=== PATIENT | female | born 1970 | race Caucasian/White ===

== ENCOUNTER 2018-01-13 14:09 | Emergency (ER) | payer BC, SELFPAY ==
[2018-01-13 14:48] VITALS: BP 134/76; PULSE 82; RESP 18; TEMP 36.8; O2SAT 99; BMI 23.1
--- NOTE | 2018-01-13 15:00 | HMH.EDGENADL ---
ED Disposition Clinical Impression: Hypokalemia, Neutropenia Disposition: Home, Self-Care Condition on Discharge: Good Instructions: DI for Diarrhea and Traveler's Diarrhea -- Adult, DI for Diarrhea and Traveler's Diarrhea -- Child, DI for Nausea -- Adult, DI for Nausea -- Child Additional Instructions: Patient will use Gatorade or Powerade. No more plain water. Up with Dr. Bustillos in 3 days for potassium recheck. Return if needed. Prescriptions: Potassium Bicarbonate/Cit AC [Potassium 25 Meq Tablet Eff] 25 meq PO DAILY #2 tablet.eff Referrals: Heriberto Bustillos MD [Primary Care Provider] - - Critical Care Critical Care Time: No Attestation: On 01/13/18, the high probability of a clinically significant, sudden or life threatening deterioration of the following system(s) required my full and direct attention, intervention and personal management. The time I documented below is in addition to time spent performing reported procedures but includes the following listed in this critical care notation. Medical Decision Making Vital Signs: 01/13/18 14:48 Temperature 98.3 F Temperature Source Oral Pulse Rate [Right Brachial] 82 Respiratory Rate 18 Blood Pressure [RIGHT] 134/76 Blood Pressure Mean [RIGHT] 95 Blood Pressure Source [RIGHT] Automatic Cuff Blood Pressure Position [RIGHT] Sitting 02 Sat by Pulse Oximetry 99 Oxygen Delivery Method Room Air - Lab Data Lab Results 01/13/18 14:45: WBC 2.4 L, RBC 5.08, Hgb 12.7, Hct 40.2, MCV 79.0 L, MCH 24.9 L, MCHC 31.6 L, RDW 14.4, Plt Count 96 L, MPV 9.1, Neut % (Auto) 39.7, Lymph % (Auto) 52.4 H, [place] % (Auto) 6.3, Eos % (Auto) 0.8, Baso % (Auto) 0.7, Neut # (Auto) 0.9 L*, Lymph # (Auto) 1.1, [place] # (Auto) 0.2, Eos # (Auto) 0.0, Baso # (Auto) 0.0 01/13/18 14:45: Sodium 138, Potassium 3.4 L, Chloride 100, Carbon Dioxide 28, Anion Gap 13.4, BUN 12, Creatinine 0.74, Estimated Creat Clear 90, Estimated GFR 84, Est GFR ( Amer) 101, Glucose 105, Calcium 8.7, Magnesium 1.7, Total Bilirubin 0.2, AST 57 H, ALT 58, Alkaline Phosphatase 59, Total Protein 7.9, Albumin 3.8, Globulin 4.1 H, Albumin/Globulin Ratio 0.9 L Result diagrams: 01/13/18 14:45 01/13/18 14:45 Orders (Tests/Meds): ED MEDICATIONS Discontinued Medications Generic Name Dose Route Start Last Admin Trade Name Valentine PRN Reason Stop Dose Admin Potassium Chloride 40 meq 01/13/18 15:50 Klor-Con 20meq Tablet PO 01/13/18 15:51 ONCE ONE ORDERS Category Date Time Status Complete Blood Count Auto Diff Stat Lab 01/13/18 14:45 Results - Enrique Inquiry Pt receiving controlled substance: No Enrique was queried for this patient: No Medical Decision Making Narrative: Discussed with the patient her low potassium level and advised her for using Gatorade or Powerade instead of plain water. He verbalized understanding. Received potassium supplement for the next 3 days. Follow-up with Dr. Bustillos for recheck in 3 days. General Adult HPI - General Chief complaint: Nausea/Vomiting/Diarrhea Stated complaint: diag flu 01/10 today: hands drawing up arms moving Mode of Arrival: Family Vehicle Limitations: No Limitations Description of Symptoms (Recalled from ER Triage Doc. by RN): N/V AFTER HAVING FLU. PROBABLY DEHYDRATED - History of Present Illness HPI narrative: 47 years old white female with history of palpitations and anxiety who was diagnosed with the flu a week ago. Had decreased appetite and she is drinking water only. He developed muscle cramp. She has no other symptoms. Onset (ago): day(s) (2 Days.) Radiation: non-radiation Consistency: intermittent Relieving factors: none Exacerbating factors: none Associated symptoms: denies other symptoms Treatments prior to arrival: none - Related Data Previous Rx's Medication Instructions Recorded Potassium Bicarbonate/Cit AC 25 meq PO DAILY #2 tablet.eff 01/13/18 [Potassium 25 Meq Tablet Eff
[2018-01-13 15:29] LABS: Hematocrit 40.2 % (37.0-47.0); Hemoglobin 12.7 g/dL (12.2-16.2); Mean Corpuscular HGB Conc 31.6 g/dL (31.8-35.4); Mean Corpuscular Hemoglobin 24.9 pg (27.0-31.2); Red Blood Count 5.08 M/mm3 (4.20-5.40); White Blood Count 2.4 K/mm3 (4.8-10.8)
[2018-01-13 15:30] LABS: Basophils % 0.7 % (0.1-2.0); Eosinophils % 0.8 % (0.1-12.0); Lymphocytes # 1.1 K/mm3 (0.7-4.5); Lymphocytes % 52.4 K/mm3 (10-50); Mean Platelet Volume 9.1 fl (7.4-10.4); Monocytes # 0.2 K/mm3 (0.1-1.0); Monocytes % 6.3 % (1.7-9.3); Neutrophils # 0.9 K/mm3 (1.8-7.8); Neutrophils % 39.7 % (37.0-80.0); Platelet Count 96 K/mm3 (142-424); Red Cell Distribution Width 14.4 % (11.5-17.5)
[2018-01-13 15:32] LABS: MANUAL DIFFERENTIAL MANUAL DIFFERENTIAL (MANUAL DIFF)
[2018-01-13 15:35] LABS: Alanine Aminotransferase 58 U/L (12-78); Albumin Level 3.8 gm/dL (3.4-5.0); Albumin/Globulin Ratio 0.9 (1.1-1.8); Alkaline Phosphatase 59 U/L (46-116); Anion Gap 13.4 mEq/L (5-15); Aspartate Amino Transferase 57 U/L (15-37); Bilirubin,Total 0.2 mg/dL (0.2-1.0); Blood Urea Nitrogen 12 mg/dL (7-18); Calcium 8.7 mg/dL (8.5-10.1); Carbon Dioxide 28 mmol/L (21.0-32.0); Chloride 100 mmol/L (98-107); Creatinine Clearance Estimated 90 mL/min (0-300); Creatinine,Serum 0.74 mg/dL (0.55-1.02); Estimated Glomerular Filt Rate 84 ml/min (>60); GFR (African American) 101 ML/MIN (>60); Globulin 4.1 gm/dl (1.3-3.2); Glucose 105 mg/dL (74-106); Magnesium 1.7 mg/dL (1.4-2.2); Potassium 3.4 mmoL/L (3.5-5.1); Sodium 138 mmol/L (136-145); Total Protein,Serum 7.9 gm/dL (6.4-8.2)
[2018-01-13 16:22] VITALS: BP 134/75; PULSE 88; RESP 18; TEMP 36.7
[2018-01-13 16:34] LABS: Lymphocytes % 58 % (10-50); Monocytes % 4 % (2-9); Neutrophils % 38 % (42-76); Total Cells Counted 100
[2018-01-13 16:36] LABS: Hypochromasia 2+; Platelet Estimate Moderate D
== END 2018-01-13 16:22 | disposition home or self-care (01) ==
PROVIDERS: Emergency Provider Emergency Medicine; Family Provider Family Medicine; PCP Family Medicine
DX: E87.6 Hypokalemia (principal); D70.9 Neutropenia, unspecified
CPT/HCPCS: 80053; 83735; 85007; 85025; 99282

== ENCOUNTER → 2019-09-22 08:15 | Outpatient (CLI) | payer BC, SELFPAY ==
[2019-09-22 08:48] LABS: Basophils # 0.1 K/mm3 (0-0.2); Basophils % 1.3 % (0.1-2.0); Eosinophils # 0.4 K/mm3 (0.0-0.4); Eosinophils % 8.5 % (0.1-12.0); Hematocrit 41.1 % (37.0-47.0); Hemoglobin 12.5 g/dL (12.2-16.2); Lymphocytes # 1.6 K/mm3 (0.7-4.5); Lymphocytes % 36.8 % (10-50); Mean Corpuscular HGB Conc 30.3 g/dL (31.8-35.4); Mean Corpuscular Hemoglobin 26.4 pg (27.0-31.2); Mean Platelet Volume 8.2 fl (7.4-10.4); Monocytes # 0.2 K/mm3 (0.1-1.0); Monocytes % 5.4 % (1.7-9.3); Neutrophils # 2.1 K/mm3 (1.8-7.8); Platelet Count 202 K/mm3 (142-424); Red Blood Count 4.73 M/mm3 (4.20-5.40); Red Cell Distribution Width 13.9 % (11.5-17.5); White Blood Count 4.3 K/mm3 (4.8-10.8)
[2019-09-22 10:12] LABS: Alanine Aminotransferase 32 U/L (12-78); Albumin Level 3.8 gm/dL (3.4-5.0); Albumin/Globulin Ratio 1.1 (1.1-1.8); Alkaline Phosphatase 53 U/L (46-116); Anion Gap 10.6 mEq/L (5-15); Aspartate Amino Transferase 34 U/L (15-37); Bilirubin,Total 0.2 mg/dL (0.2-1.0); Blood Urea Nitrogen 16 mg/dL (7-18); Calcium 8.9 mg/dL (8.5-10.1); Carbon Dioxide 30 mmol/L (21.0-32.0); Chloride 106 mmol/L (98-107); Chol/HDL Ratio 2.3 (1-3.5); Cholesterol 184 mg/dL (140-200); Creatinine,Serum 0.67 mg/dL (0.55-1.02); Estimated Glomerular Filt Rate 93 ml/min (>60); GFR (African American) 113 ML/MIN (>60); Globulin 3.5 gm/dl (1.3-3.2); Glucose 107 mg/dL (74-106); HDL Cholesterol 79 mg/dL (29-89); LDL Cholesterol 92 mg/dL (0-130); Lipase 156 u/L (73-393); Potassium 4.6 mmoL/L (3.5-5.1); Sodium 142 mmol/L (136-145); T4 (Thyroxine) 7.6 ug/dl (4.7-13.3); Thyroid Stimulating Hormone 2.21 uIU/ml (0.358-3.740); Total Protein,Serum 7.3 gm/dL (6.4-8.2); Triglycerides 63 mg/dL (30-200); VLDL Cholesterol 13 mg/dL (0-40)
[2019-09-23 18:53] LABS: Deamidated Gliadin Abs, IgA 4 units (0-19); Deamidated Gliadin Abs, IgG 3 units (0-19); Tissue Transglutaminase IgA Ab <2 U/mL (0-3); Tissue Transglutaminase IgG Ab <2 U/mL (0-5)
[2019-09-26 12:54] LABS: Endomysial IgA Antibody Negative (Negative)
[2019-09-27 07:23] LABS: Reticulin IgA Antibody Negative titer (Neg:<1:2.5)
== END ==
PROVIDERS: Visit Provider Family Medicine
DX: E04.9 Nontoxic goiter, unspecified (principal); K92.9 Disease of digestive system, unspecified
CPT/HCPCS: 36415; 80053; 80061; 83516; 83690; 84436; 84443; 85025; 86255; 86256

== ENCOUNTER → 2020-02-23 14:13 | Outpatient (CLI) | payer BC, SELFPAY ==
--- NOTE | 2020-02-23 14:17 | XR_ITS ---
PROCEDURE: XR SHOULDER RT MIN 2V CLINICAL INDICATION: RT SHOULDER PAIN Right shoulder pain COMPARISON: No exams were available for comparison FINDINGS: No fracture, dislocation, lytic change, or blastic change evident. No significant degenerative change IMPRESSION: No acute findings. Dictated by: Taz Lugo MD 02/23/2020 15:44 Electronically signed by Taz Lugo MD in [place] 02/23/2020 15:44
== END ==
PROVIDERS: PCP Family Medicine; Visit Provider Family Medicine
DX: M25.511 Pain in right shoulder (principal)
CPT/HCPCS: 73030

== ENCOUNTER 2020-03-08 14:00 | Outpatient (RCR) | payer BC, SELFPAY ==
--- NOTE | 2020-02-28 15:03 | HMH.OTOPEV ---
OT Inpatient Evaluation Rehab OT Outpatient Eval Start: 02/28/20 14:40 Freq: Status: Active Protocol: Document 02/28/20 14:40 [facility] (Rec: 02/28/20 15:03 [facility] [id number]) Electronically Signed By Blaise Andrade OT 02/28/20 14:40 Outpatient Therapy Subjective History Subjective History Pt is a 50 year old female who reports to therapy for initial evaluation to right shoulder. Pt claims she began having pain in right shoulder ~1 year ago. She does not recall a specific injury causing pain in the shoulder. Pt informed therapist that within the past three weeks her pain and stiffiness has become increasingly worse. Pt does demonstrate with significant decline in both AROM and strength at right shoulder. Pt scored an 85 on the Quickdash displays significant decrease in functional ability of the RUE. Chief Complaint Pain,Stiff,Weakness Symptom Type Ache,Throb,Sharp,Dull,Numbness ,Tingling Symptoms Relieved By Rest/Positioning Symptoms Aggravated By Physical Activity,Lifting Prior Functional Limitations None Current Functional Limitations Reaching,Lifting,Housework, Dressing,Desk Work/Reading, Driving,Sleeping,Recreation Activity,Bending/Stooping Symptom Description Constant but Variable Level of pain today (0-10) 4 Pain scale - at its best (0-10) 3 Pain scale - at its worst (0-10) 10 Shoulder/Elbow Eval Shoulder Objective Measurements Shoulder ROM Right Shoulder ROM Limitations Muscle Weakness,Pain Shoulder Abduction Active Range of 75 degrees Motion (degrees) Shoulder Flexion Active Range of Motion 105 degrees (degrees) Query Text: Shoulder External Rotation Active Range 30 degrees of Motion (degrees) Shoulder Internal Rotation Active Range 20 degrees of Motion (degrees) pain with active ROM shoulder exam right standard pain with passive ROM shoulder exam right standard decreased ROM shoulder exam standard right Shoulder MMT Shoulder Abduction Strength Grade 3 Fair Shoulder Extension Strength Grade 3 Fair Shoulder Fle
== END 2020-03-08 14:05 | disposition home or self-care (01) ==
LOC: OT 14:00
PROVIDERS: Visit Provider Family Medicine
DX: M25.511 Pain in right shoulder (principal)
CPT/HCPCS: 97014; 97110; 97140; 97166; G0283

== ENCOUNTER → 2020-05-06 10:08 | Outpatient (CLI) | payer BC, SELFPAY ==
--- NOTE | 2020-05-06 10:19 | XR_ITS ---
PROCEDURE: XR SHOULDER RT MIN 2V CLINICAL INDICATION: right shoulder pain Right shoulder pain COMPARISON: XR SHOULDER RT MIN 2V from 02/23/2020 FINDINGS: No fracture, dislocation, lytic change, or blastic change evident. No significant degenerative change IMPRESSION: Negative right shoulder Dictated by: Taz Lugo MD 05/06/2020 13:53 Electronically signed by Taz Lugo MD in [place] 05/06/2020 13:53
== END ==
PROVIDERS: PCP Family Medicine; Visit Provider Orthopaedic Surgery
DX: M25.511 Pain in right shoulder (principal)
CPT/HCPCS: 73030

== ENCOUNTER 2020-10-22 09:55 | Emergency (ER) | payer BC, SELFPAY ==
[2020-10-22] VITALS (9 sets, daily range): BP systolic 114–138; BP diastolic 66–95; PULSE 68–116; RESP 19; TEMP 36.6; O2SAT 96–99; BMI 22.4
--- NOTE | 2020-10-22 09:55 | ECG_ITS ---
APPROVED REPORT Exam: Resting ECG HR:96 bpm ECG Measurements Heart Rate 96 AXES AZ 148 P 66 QRSd 60 QRS 62 QT 338 T 43 QTc 427 Conclusion Normal sinus rhythm Biatrial enlargement Septal infarct, age undetermined Abnormal ECG Electronically signed by : Dru Rodriguez, 10/22/2020 19:48:10
--- NOTE | 2020-10-22 10:02 | XR_ITS ---
PROCEDURE: XR CHEST 2V CLINICAL HISTORY: palpitations Rapid heart rate, chest pain COMPARISON: No exams were available for comparison FINDINGS: The cardiomediastinal silhouette and pulmonary vascularity are within normal limits. The lungs are clear without infiltrates, suspicious nodules, or pleural effusions. No acute bony abnormalities. IMPRESSION: No acute findings. Dictated by: Taz Lugo MD 10/22/2020 14:32 Taz Lugo MD in [place] 10/22/2020 14:32
--- NOTE | 2020-10-22 10:03 | HMH.EDCP ---
ED Disposition Clinical Impression: Palpitations, Tachycardia Disposition: Home, Self-Care Condition on Discharge: Good Instructions: DI for Palpitations Additional Instructions: You have been evaluated for tachycardia, palpitations. Please follow-up with cardiology, Dr. Ross tomorrow in clinic as planned. Take metoprolol as prescribed. Return to the emergency department if you have any new or worsening chest pain, palpitations, other concerns. Referrals: PCP,No [Non-Staff] - Time of Disposition: 13:19 - Critical Care Critical Care Time: No Attestation: On 10/22/20, the high probability of a clinically significant, sudden or life threatening deterioration of the following system(s) required my full and direct attention, intervention and personal management. The time I documented below is in addition to time spent performing reported procedures but includes the following listed in this critical care notation. Medical Decision Making - Medical Records Medical records reviewed: Yes: I reviewed the patient's medical records. - Enrique Inquiry Pt receiving controlled substance: No Vital Signs: 10/22/20 09:56 10/22/20 10:26 10/22/20 11:10 Temperature 97.8 F Temperature Source Oral Pulse Rate Pulse Rate [Left Radial] 101 H 87 72 Respiratory Rate 19 Blood Pressure Blood Pressure [Right Arm] 138/93 H 124/66 121/90 Blood Pressure Mean [Right Arm] 108 85 100 Blood Pressure Source Blood Pressure Source [Right Arm] Automatic Cuff Automatic Cuff Automatic Cuff Blood Pressure Position Blood Pressure Position [Right Arm] Sitting Sitting Sitting 02 Sat by Pulse Oximetry 98 99 97 Oxygen Delivery Method Room Air Room Air Room Air 10/22/20 11:47 10/22/20 12:00 10/22/20 12:36 Temperature Temperature Source Pulse Rate Pulse Rate [Left Radial] 77 68 72 Respiratory Rate Blood Pressure Blood Pressure [Right Arm] 120/95 H 132/94 H 120/82 Blood Pressure Mean [Right Arm] 103 106 94 Blood Pressure Source Blood Pressure Source [Right Arm] Automatic Cuff Automatic Cuff Automatic Cuff Blood Pressure Position Blood Pressure Position [Right Arm] Sitting Sitting Sitting 02 Sat by Pulse Oximetry 98 99 97 Oxygen Delivery Method Room Air Room Air Room Air 10/22/20 13:00 10/22/20 13:30 10/22/20 13:51 Temperature 97.8 F Temperature Source Oral Pulse Rate 68 Pulse Rate [Left Radial] 71 68 Respiratory Rate 19 Blood Pressure 114/88 Blood Pressure [Right Arm] 120/90 114/88 Blood Pressure Mean [Right Arm] 100 96 Blood Pressure Source Automatic Cuff Blood Pressure Source [Right Arm] Automatic Cuff Automatic Cuff Blood Pressure Position Sitting Blood Pressure Position [Right Arm] Sitting Sitting 02 Sat by Pulse Oximetry 96 99 Oxygen Delivery Method Room Air Room Air Room Air - Lab Data Lab Results 10/22/20 09:58: WBC 6.4, RBC 5.34, Hgb 14.9, Hct 48.4 H, MCV 90.6, MCH 27.9, MCHC 30.8 L, RDW 12.8, Plt Count 208, MPV 7.5, Neut % (Auto) 55.7, Lymph % (Auto) 33.9, [place] % (Auto) 4.9, Eos % (Auto) 4.2, Baso % (Auto) 1.3, Neut # (Auto) 3.6, Lymph # (Auto) 2.2, [place] # (Auto) 0.3, Eos # (Auto) 0.3, Baso # (Auto) 0.1 10/22/20 09:58: Sodium 140, Potassium 4.1, Chloride 101, Carbon Dioxide 29, Anion Gap 14.1, BUN 20 H, Creatinine 0.70, Estimated Creat Clear 92, Estimated GFR 88, Est GFR ( Amer) 107, Glucose 97, Calcium 10.6 H, Troponin I < 0.01, TSH 2.50 10/22/20 09:58: Free T4 1.06 10/22/20 12:11: Troponin I < 0.01 Result diagrams: 10/22/20 09:58 10/22/20 09:58 Orders (Tests/Meds): ED MEDICATIONS Discontinued Medications Generic Name Dose Route Start Last Admin Trade Name Valentine PRN Reason Stop Dose Admin Metoprolol Succinate 50 mg 10/22/20 10:04 10/22/20 10:09 Metoprolol Succinate Xl 50mg Tablet PO 10/22/20 10:05 Not Given ONCE ONE Metoprolol Tartrate 50 mg 10/22/20 10:09 10/22/20 10:09 Metoprolol Tartrate 50mg Tablet PO 10/22/20 10:10
[2020-10-22 10:18] LABS: Basophils # 0.1 K/mm3 (0-0.2); Basophils % 1.3 % (0.1-2.0); Eosinophils # 0.3 K/mm3 (0.0-0.4); Eosinophils % 4.2 % (0.1-12.0); Hematocrit 48.4 % (37.0-47.0); Hemoglobin 14.9 g/dL (12.2-16.2); Lymphocytes # 2.2 K/mm3 (0.7-4.5); Lymphocytes % 33.9 % (10-50); Mean Corpuscular HGB Conc 30.8 g/dL (31.8-35.4); Mean Corpuscular Hemoglobin 27.9 pg (27.0-31.2); Mean Corpuscular Volume 90.6 fl (81-99); Mean Platelet Volume 7.5 fl (7.4-10.4); Monocytes # 0.3 K/mm3 (0.1-1.0); Monocytes % 4.9 % (1.7-9.3); Neutrophils # 3.6 K/mm3 (1.8-7.8); Neutrophils % 55.7 % (37.0-80.0); Platelet Count 208 K/mm3 (142-424); Red Blood Count 5.34 M/mm3 (4.20-5.40); Red Cell Distribution Width 12.8 % (11.5-17.5); White Blood Count 6.4 K/mm3 (4.8-10.8)
[2020-10-22 10:40] LABS: Chloride 101 mmol/L (98-107); Potassium 4.1 mmoL/L (3.5-5.1); Sodium 140 mmol/L (136-145)
[2020-10-22 10:43] LABS: Anion Gap 14.1 mEq/L (5-15); Blood Urea Nitrogen 20 mg/dl (7-17); Calcium 10.6 mg/dl (8.4-10.2); Carbon Dioxide 29 mmol/L (22.0-30.0); Creatinine Clearance Estimated 92 mL/min (50-200); Estimated Glomerular Filt Rate 88 ml/min (>60); GFR (African American) 107 ML/MIN (>60); Glucose 97 mg/dl (74-100)
[2020-10-22 10:59] LABS: Troponin I < 0.01 ng/ml (0.00-0.034)
[2020-10-22 11:41] LABS: Free T4 (Free Thyroxine) 1.06 ng/dl (0.78-2.19)
[2020-10-22 12:57] LABS: Troponin I < 0.01 ng/ml (0.00-0.034)
== END 2020-10-22 13:52 | disposition home or self-care (01) ==
PROVIDERS: Emergency Provider Emergency Medicine; PCP Family Medicine
DX: R00.2 Palpitations (principal); R07.9 Chest pain, unspecified; Z79.899 Other long term (current) drug therapy
CPT/HCPCS: 71046; 80048; 84439; 84443; 84484; 85025; 93005; 93306; 99283

== ENCOUNTER → 2020-10-28 06:42 | Outpatient (CLI) | payer BC, SELFPAY ==
--- NOTE | 2020-10-28 06:43 | NM_ITS ---
APPROVED REPORT Exam: Nuclear Stress Test Indication: Chest pain, SOB Patient Location: Outpatient Stress Tech: Victoria Zapata [place] Tech:Staci Strange, MALLORYT, RT (R)(N) Ht: 5 ft 4 in Wt: 135 lbs HR: 68 bpm BP: 110/83 mmHg BSA: 1.66 m2 BMI: 23.1 History: Chest pain, SOB Procedure: Patient exercised on Jose Juan protocol 7:40 minutes and sec, resting heart rate 68 bpm, resting blood pressure 110/83 mmHg, with exercise maximum heart rate achived was 186 bpm which is 110 % of the maximum predicted heart rate and blood pressure was 159/82 mmHg. Test was stopped due to SOB. Patient denied any complaint of chest pain. Patient has Good exercise capacity, achieved 10.1 METs of workload on treadmill, the blood pressure response to exercise was Adequate. Electrocardiogram Resting electrocardiogram shows sinus rhythm, with exercise there is less than 1.[address] segment depression noted from the baseline EKG. The EKG portion of the exercise Myoview is negative for ischemia. Cardiac Stress and Resting SPECT Images: Cardiac Stress and Resting SPECT images were obtained using technetium 99m Myoview 30.5 mCi stress and 9.71 mCi at rest. Gated SPECT for analysis of segmental wall motion and calculation of the ejection fraction also done. Cardiac stress and resting SPECT images show uniform myocardial activity without segmental perfusion abnormality, computer derived ejection fraction is 52% with no regional wall motion abnormality, right ventricle is normal size and contractility. Conclusion: 1. The EKG portion of the exercise Myoview is negative for ischemia, patient has good exercise capacity achieved 10.1 mets of workload on treadmill, the blood pressure response to exercise was adequate, there was no exercise-induced chest discomfort. 2. No scintigraphic evidence of reversible ischemia seen at this level of exercise, computer derived ejection fraction is 52% with no regional wall motion abnormality, right ventricle is normal size and contractility. 3. Normal exercise Myoview study. Electronically signed by : Jarocho Haji, 10/30/2020 06:49:38
--- NOTE | 2020-10-28 06:43 | CA_ITS ---
APPROVED REPORT Exam: Exercise Treadmill Technologist: Victoria Zapata Ht: 5 ft 4 in Wt: 132 lbs BSA: 1.64 m2 HR: 68 bpm BP: 110/83 mmHg Indications: Chest pain, Shortness of Air Medical History Medications: Omeprazole,,,,, Alprazolam,,,,, Metoprolol,,,,, Ibuprofen,,,,, Stress Test Details Test: Jose Juan HR Resting HR: 98 bpm Max Heart Rate (APMHR): 169 bpm Max HR Achieved: 186 bpm Target HR (85% APMHR): 143 bpm % of APMHR: 110 Recovery HR: 104 bpm BP Resting BP: 110.0/83.0 mmHg Max BP: 159.0/82.0 mmHg Recovery BP: 141.0/74.0 mmHg ECG Clinical Exercise duration: 07:40 min Highest Stage Achieved: Exercise capacity: 10.1 METs Stress ECG Conclusion Resting EKG: Sinus rhythm Jose Juan protocol completed. Patient exercised 07:40. Test stopped due to shortness of breath. METs: 10.1 Symptoms: Shortness of breath during peak exercise, resolved in recovery. No chest pain. Arrhythmias/Ectopy: Occasional PVC ST-T Changes: Less than 1.[address] depression Conclusion: Images to follow. Test Summary REST . . . . . . . Sitting REST 23:42 0.0 0.0 98 . 110/ 83 . . Stage 1 01:00 10.0 1.7 112 . . . . Stage 1 02:00 10.0 1.7 114 . . . . Stage 1 03:00 10.0 1.7 129 . 130/ 86 . . Stage 2 01:00 12.0 2.5 155 . . . . Stage 2 02:00 12.0 2.5 169 . . . . Stage 2 03:00 12.0 2.5 173 . 158/ 86 . . Stage 3 . . . . . . . Cardiolite injected Stage 3 01:00 14.0 3.4 182 . . . . Stage 3 01:40 14.0 3.4 186 . . . Stop exercise at 07:40 RECOVERY 01:00 0.0 0.0 165 . 148/ 70 . . RECOVERY 02:00 0.0 0.0 123 . 148/ 70 . . RECOVERY 03:00 0.0 0.0 108 . 159/ 82 . . RECOVERY 04:00 0.0 0.0 105 . 141/ 74 . . RECOVERY 04:13 0.0 0.0 102 . 141/ 74 . . Electronically signed by : Faustino Ross, 10/28/2020 15:48:20
--- NOTE | 2020-10-28 08:20 | HMH.ITSHM ---
Current Home Medications as stated by this patient Gabriella Calzada or medical detail representative. []METOPROLOL OMEPRAZOLE ALPROZOLAM
== END ==
PROVIDERS: PCP Family Medicine; Visit Provider Urology
DX: R07.9 Chest pain, unspecified (principal); R00.2 Palpitations; R06.00 Dyspnea, unspecified; R94.31 Abnormal electrocardiogram [ECG] [EKG]; K21.9 Gastro-esophageal reflux disease without esophagitis
CPT/HCPCS: 78452; 93017; A9502

== ENCOUNTER 2020-12-02 13:51 | Emergency (ER) | payer BC, SELFPAY ==
[2020-12-02 14:20] VITALS: BP 119/84; PULSE 70; RESP 20; TEMP 36.8; O2SAT 98; BMI 23.6
--- NOTE | 2020-12-02 14:38 | HMH.EDUTC ---
[facility] [place] Disposition Clinical Impression: Encounter for laboratory testing for COVID-19 virus URI (upper respiratory infection) Qualifiers: URI type: unspecified URI Qualified Code(s): J06.9 - Acute upper respiratory infection, unspecified Disposition: Home, Self-Care Condition on Discharge: Good Instructions: Coronavirus Disease 2019, DI for COVID-19 (Suspected or Confirmed ), Preventing the Spread of Coronavirus Discharge Instructions, DI for Sinusitis Additional Instructions: *Monitor Temp, Over the counter Motrin or Tylenol as directed/as needed Tylenol every 4 hours and Motrin every 6 hours (as long as your family doctor has told you that you can take it) for fever or pain. and straight to ER if unable to lower temp less than 101.0 after medication given *Warm salt water gargles may help to soothe the throat *Throat Lozenges *Warm fluids like tea with honey may help to soothe the throat *Sleep elevated *Humidifier/Vaporizer *Flonase 2 sprays in each nostril daily but be aware that it may take 2-3 days before you notice improvement Follow up IMMEDIATELY for new or worsening symptoms or no Noticeable improvement over the next 48-72 hours. 911 for difficulty breathing or swallowing You were tested for today for COVID19 your test result should be back in the next 24-48 hours, you may call to the [facility] to see if your test results are back in the next 48 hours [phone] [facility] hours are 9am-9pm You was given a handout with instructions for Self Quarantine and Self isolation for while you wait on test results and what to do if they are positive If you are positive the Health Dept will be contacting you also Prescriptions: Fluticasone Propionate [Flonase 50mcg nasal spray 16gm] 1 spr NS DAILY #1 bottle Transmission Status: Pending to [facility] Azithromycin [Z-Bj 250mg Tab] 250 mg PO DIRECTED #6 tab Transmission Status: Pending to [facility] Referrals: Heriberto Bustillos MD [Primary Care Provider] - As needed Forms: Work/School Release Time of Disposition: 14:42 Medical Decision Making - Enrique Inquiry Pt receiving controlled substance: No Enrique was queried for this patient: No Vital Signs: 12/02/20 14:20 Temperature 98.2 F Temperature Source Oral Pulse Rate [Right Brachial] 70 Respiratory Rate 20 Blood Pressure [Right Arm] 119/84 Blood Pressure Mean [Right Arm] 95 Blood Pressure Source [Right Arm] Automatic Cuff Blood Pressure Position [Right Arm] Sitting 02 Sat by Pulse Oximetry 98 Oxygen Delivery Method Room Air Orders (Tests/Meds): ORDERS Category Date Time Status Covid-19 Nasal PCR ([facility]) Routine Lab 12/02/20 14:00 Ordered [facility] [place] HPI - General Stated complaint: covid test Time Seen by Provider: 12/02/20 14:38 Mode of Arrival: Ambulatory Source of Information: Patient Limitations: No Limitations Description of Symptoms (Recalled from Triage Doc. by RN): PATIENT REQUESTING COVID TEST. C/O COUGH, CHEST CONGESTION, AND RIGHT EAR PAIN X 2 DAYS HEENT Symptoms (Recalled from RN notes): No Resp Symptoms (Recalled from RN notes): No Skin Symptoms (Recalled from RN notes): No MS Symptoms (Recalled from RN notes): No Functional Status (Recalled from RN notes): WNL - History of Present Illness Provider Complaint: Patient states that she has been having pain in her right ear, sinus pressure and cough for several days State that she isnt sure if she has been around someone with COVID or not but wanted to get tested States that she has had sinus infections in the past and this feels like it did then - Related Data Home Medications Medication Instructions Recorded Confirmed ibuprofen 200 mg tablet 200 mg PO Q6H PRN 05/06/20 11/04/20 omeprazole 40 mg capsule,delayed 40 mg PO DAILY 05/06/20 11/04/20 release alprazolam 0.5 mg tablet 0.5 mg PO QID PRN tab 10/23/20 11/04/20 metoprolol succinate 50 mg 50 mg PO BID tab 10/23/20 11/04/20 tablet,extend
[2020-12-02 15:06] VITALS: BP 119/84; PULSE 70; RESP 20; TEMP 36.8; O2SAT 98
== END 2020-12-02 15:07 | disposition home or self-care (01) ==
PROVIDERS: Emergency Provider Nurse Practitioner; PCP Family Medicine
DX: Z20.822 Contact with and (suspected) exposure to COVID-19 (principal); J06.9 Acute upper respiratory infection, unspecified; K21.9 Gastro-esophageal reflux disease without esophagitis; R00.2 Palpitations
CPT/HCPCS: 99202; G0463; U0003

== ENCOUNTER 2021-02-18 13:51 | Emergency (ER) | payer BC, SELFPAY ==
[2021-02-18 13:54] VITALS: BP 130/93; PULSE 72; RESP 18; TEMP 36.6; O2SAT 98; BMI 24.0
[2021-02-18 14:12] VITALS: BP 130/93; PULSE 77; RESP 18; O2SAT 96
--- NOTE | 2021-02-18 14:21 | XR_ITS ---
PROCEDURE: XR ANKLE LT MIN 3V CLINICAL INDICATION: fall Posttraumatic pain COMPARISON: CR XR FOOT LT MIN 3V from 02/18/2021 FINDINGS: The ankle has an unremarkable appearance. There is a faint curvilinear density along the lateral aspect of the calcaneus as seen on the AP view of the ankle and the AP view of the foot suggesting a small avulsion fracture. This is not significantly displaced. No other significant anomalies are apparent. IMPRESSION: Nondisplaced avulsion fracture along the lateral and distal aspect of the calcaneus with overlying soft tissue swelling. Dictated by: Taz Lugo MD 02/18/2021 15:50 Taz Lugo MD in [place] 02/18/2021 15:51
--- NOTE | 2021-02-18 14:21 | XR_ITS ---
PROCEDURE: XR KNEE LT 3V CLINICAL INDICATION: fall Pain COMPARISON: No exams were available for comparison FINDINGS: No fracture or dislocation. No lytic or blastic change. There is normal mineralization. The joint spaces are well-preserved. No significant degenerative/arthritic changes. No erosive changes evident. Other findings:None. IMPRESSION: No acute findings. Dictated by: Taz Lugo MD 02/18/2021 15:52 Taz Lugo MD in [place] 02/18/2021 15:52
--- NOTE | 2021-02-18 14:21 | XR_ITS ---
PROCEDURE: XR KNEE RT 3V CLINICAL INDICATION: fall Posttraumatic pain COMPARISON: CR XR KNEE LT 3V from 02/18/2021 FINDINGS: No fracture or dislocation. No lytic or blastic change. There is normal mineralization. The joint spaces are well-preserved. No significant degenerative/arthritic changes. No erosive changes evident. Other findings:None. IMPRESSION: No acute findings. Dictated by: Taz Lugo MD 02/18/2021 15:51 Taz Lugo MD in [place] 02/18/2021 15:51
--- NOTE | 2021-02-18 14:22 | XR_ITS ---
PROCEDURE: XR RIBS LT MIN 3V W CXR1V CLINICAL INDICATION: fall, pain COMPARISON: CR XR CHEST 2V from 10/22/2020 FINDINGS: Multiple views of the left ribs show no obvious fracture. No lytic or blastic change. Consider follow-up in 7-[address] with 3D reformats if pain persists Frontal view of the chest shows no acute finding IMPRESSION: No acute findings. Dictated by: Taz Lugo MD 02/18/2021 15:53 Taz Lugo MD in [place] 02/18/2021 15:53
[2021-02-18 14:30] VITALS: BP 113/86; PULSE 80; RESP 18; O2SAT 98
--- NOTE | 2021-02-18 15:30 | HMH.EDGENADL ---
ED Disposition Clinical Impression: Avulsion fracture of calcaneus Qualifiers: Encounter type: initial encounter Calcaneus location: tuberosity Fracture type: closed Fracture alignment: nondisplaced Laterality: left Qualified Code(s): S92.035A - Nondisplaced avulsion fracture of tuberosity of left calcaneus, initial encounter for closed fracture Contusion of knee, left Qualifiers: Encounter type: initial encounter Qualified Code(s): S80.02XA - Contusion of left knee, initial encounter Contusion of knee, right Qualifiers: Encounter type: initial encounter Qualified Code(s): S80.01XA - Contusion of right knee, initial encounter Contusion of rib on left side Qualifiers: Encounter type: initial encounter Qualified Code(s): S20.212A - Contusion of left front wall of thorax, initial encounter Disposition: Home, Self-Care Condition on Discharge: Good Instructions: How to Use Crutches, DI for Foot Fracture, How to Prevent Falls, How to Take Care of Your Splint Additional Instructions: Ice to sore areas 20 minutes 4-5 times a day. Elevate sore extremities for 2 to 3 days. Splint and crutches until seen by orthopedics. Gladys as needed for pain. Additional instructions for FRACTURED (BROKEN) BONE: See Dr. Alvarado as soon as possible for further evaluation. Treat your splint like you would a cast: Do not get it wet (cover with a plastic bag while bathing or showering). If the splint feels too tight, you may loosen the david wrap covering it, but do not remove the splint. You may ice the fracture by applying an ice pack over the top of the splint, without removing the splint. Return to an emergency department immediately if you have uncontrollable pain, loss of feeling or inability to move your injured extremity. Additional instructions for CONTROLLED SUBSTANCES: You have been prescribed a medication that is a controlled substance. Controlled substances include pain medications known as opiates and sedative nerve medications known as benzodiazepines. Tramadol, fioricet, and gabapentin are also controlled substances. Some common opiates include: Codeine (such as Tylenol #3) Hydrocodone (Vicodin, Lortab, Lorcet, [place]) Oxycodone (Percocet, Percodan, Oxycodone, Oxy IR) Some common benzodiazepines include: Diazepam (Valium) Lorazepam (Ativan) Alprazolam (Xanax) Clonazepam (Klonopin) Oxazepam (Serax) All of these controlled substances are highly addictive and frequently abused. Misuse can and frequently does lead to addiction as well as overdose and . Medication should be stored in a locked cabinet or other secure storage unit. Do not store the medication in a motor vehicle. Short term supplies, 3 days or less, are prescribed because of the highly addictive nature of the medication. Any of the controlled substance medication NOT taken should be disposed of properly and NOT SAVED. The recommended method of disposing of unused medications is: Place the medicines in a sealable plastic bag. If the medicine is a solid, crush it or add water to dissolve it. Add something undesirable (cat litter, coffee grounds, etc.) Dispose of sealed bag in household trash Do not flush or pour unused medicines down a sink or drain. Controlled substances should not be shared, given away or sold. Because of the addictive nature and frequent abuse, these medications are sometimes stolen. These medications should be kept in a safe place where they cannot be stolen. Do not keep them in your car or purse. Lost or stolen prescriptions for controlled substances WILL NOT BE REFILLED in this emergency department, regardless of whether a police report was filed. Prescriptions: Hydrocod/Acet 5/325 mg [[place] 5/325mg tablet] 1 tab PO Q6HP PRN #10 tab PRN Reason: Pain Transmission Status: Sent to [facility] Referrals: Heriberto Bustillos MD [Primary Care Provider] - Thiago Alvarado MD [Staff Physician] -
[2021-02-18 16:27] VITALS: BP 113/86; PULSE 80; RESP 18; TEMP 36.6; O2SAT 98
== END 2021-02-18 16:27 | disposition home or self-care (01) ==
PROVIDERS: Emergency Provider Emergency Medicine; PCP Family Medicine
DX: S92.002A Unspecified fracture of left calcaneus, initial encounter for closed fracture (principal); W10.9XXA Fall (on) (from) unspecified stairs and steps, initial encounter; Y92.019 Unspecified place in single-family (private) house as the place of occurrence of the external cause; S80.02XA Contusion of left knee, initial encounter; S80.01XA Contusion of right knee, initial encounter; S20.212A Contusion of left front wall of thorax, initial encounter; K21.9 Gastro-esophageal reflux disease without esophagitis; R03.0 Elevated blood-pressure reading, without diagnosis of hypertension; Z79.899 Other long term (current) drug therapy
CPT/HCPCS: 29515; 71101; 73562; 73610; 73630; 99282

== ENCOUNTER → 2021-03-07 13:50 | Outpatient (CLI) | payer BC, SELFPAY ==
--- NOTE | 2021-03-07 14:23 | CT_ITS ---
PROCEDURE: CT CHEST WO CON CLINICAL INDICATION: CHEST WALL PAIN Posttraumatic pain COMPARISON: CR XR RIBS LT MIN 3V W CXR1V from 02/18/2021 TECHNIQUE: Axial images obtained with sagittal and coronal reformats. All CT scans at the facility use one or more dose reduction, viz: automated exposure control, ma/kV adjustment per patient size (including targeted exams where dose is matched to indication, i.e. head), or iterative reconstruction technique. FINDINGS: HEART AND MEDIASTINAL STRUCTURES: There are few scattered small mediastinal lymph nodes. No evidence of aortic aneurysm. No mediastinal or hilar mass LUNGS AND PLEURAL SPACES: Minimal atelectatic or fibrotic change in the left lung base. Lungs are otherwise clear. No evidence of pneumothorax BONY STRUCTURES: There is a nondisplaced fracture involving the left 6th rib. There is some faint callus formation at this area. UPPER ABDOMEN: Unremarkable. ADDITIONAL FINDINGS: No other significant abnormalities. IMPRESSION: Nondisplaced left 6th rib fracture Dictated by: Taz Lugo MD 03/07/2021 17:51 Taz Lugo MD in [place] 03/07/2021 17:51
== END ==
LOC: RAD 13:50
PROVIDERS: PCP Family Medicine; Visit Provider Family Medicine
DX: R07.89 Other chest pain (principal)
CPT/HCPCS: 71250

== ENCOUNTER → 2021-03-24 14:50 | Outpatient (CLI) | payer BC, SELFPAY ==
--- NOTE | 2021-03-24 14:55 | XR_ITS ---
PROCEDURE: XR FOOT WT BEARING LT 3V CLINICAL INDICATION: foot pain Follow-up fracture COMPARISON: CR XR FOOT LT MIN 3V from 02/18/2021 FINDINGS: Previously noted avulsion fracture at the calcaneus laterally and distally is not significantly changed. Otherwise unremarkable. The joint spaces are well-preserved. No significant degenerative/arthritic changes. No erosive changes evident. Other findings:None. IMPRESSION: No change small nondisplaced avulsion fracture distal calcaneus laterally Dictated by: Taz Lugo MD 03/24/2021 16:43 Taz Lugo MD in [place] 03/24/2021 16:43
== END ==
LOC: RAD 14:52
PROVIDERS: PCP Family Medicine; Visit Provider Podiatrist
DX: T14.8XXA Other injury of unspecified body region, initial encounter (principal)
CPT/HCPCS: 73630

== ENCOUNTER → 2021-04-23 11:01 | Outpatient (CLI) | payer BC, SELFPAY ==
--- NOTE | 2021-04-23 11:04 | XR_ITS ---
PROCEDURE: XR ANKLE WT BEARING LT MIN 3V CLINICAL INDICATION: Pain, fracture follow up COMPARISON: CR XR ANKLE LT MIN 3V from 02/18/2021 FINDINGS: Bones: No fracture or dislocation. No lytic or blastic change. There is normal mineralization. Joints: The joint spaces are well-preserved. No significant degenerative/arthritic changes. No erosive changes evident. Other findings:Previously noted faint avulsion fracture along the calcaneal region is no longer apparent. IMPRESSION: No acute findings. Dictated by: Taz Lugo MD 04/23/2021 12:04 Taz Lugo MD in [place] 04/23/2021 12:04
--- NOTE | 2021-04-23 11:12 | XR_ITS ---
PROCEDURE: XR FOOT WT BEARING LT 3V CLINICAL INDICATION: foot pain COMPARISON: CR XR FOOT LT MIN 3V from 02/18/2021 CR XR FOOT WT BEARING LT 3V from 03/24/2021 FINDINGS: Small avulsion injury of the calcaneus is less apparent. No new abnormalities evident. The joint spaces are well-preserved. No significant degenerative/arthritic changes. No erosive changes evident. Other findings:There is soft tissue swelling at the 5th metatarsophalangeal junction laterally. IMPRESSION: Possible small avulsion fracture of the calcaneus less apparent. Mild soft tissue swelling 5th metatarsophalangeal junction laterally Dictated by: Taz Lugo MD 04/23/2021 12:03 Taz Lugo MD in [place] 04/23/2021 12:03
== END ==
LOC: RAD 11:02
PROVIDERS: PCP Family Medicine; Visit Provider Podiatrist
DX: M79.672 Pain in left foot (principal); S92.002A Unspecified fracture of left calcaneus, initial encounter for closed fracture
CPT/HCPCS: 73610; 73630

== ENCOUNTER 2021-08-07 10:40 | Emergency (ER) | payer BC, SELFPAY ==
[2021-08-07 11:30] VITALS: BP 140/96; PULSE 102; RESP 18; TEMP 36.7; O2SAT 95; BMI 24.0
--- NOTE | 2021-08-07 12:02 | HMH.EDUTC ---
[facility] [place] Clinical Impression: Exposure to COVID-19 virus Disposition: Home, Self-Care Condition on Discharge: Good Instructions: DI for COVID-19 (Suspected or Confirmed ), Preventing the Spread of Coronavirus Discharge Instructions Additional Instructions: *Monitor Temp, Over the counter Motrin or Tylenol as directed/as needed Tylenol every 4 hours and Motrin every 6 hours (as long as your family doctor has told you that you can take it) for fever or pain. and straight to ER if unable to lower temp less than 101.0 after medication given Follow up IMMEDIATELY for new or worsening symptoms or no Noticeable improvement over the next 48-72 hours. 911 for difficulty breathing or swallowing You were tested for today for COVID19 your test result should be back in the next 24-48 hours, you may call to the [facility] to see if your test results are back in the next 48 hours [phone] [facility] hours are 9am-9pm You was given a handout with instructions for Self Quarantine and Self isolation for while you wait on test results and what to do if they are positive If you are positive the Health Dept will be contacting you also Make sure to take your Vitamins Vit. C Vit D and Zinc if you can take them Referrals: Heriberto Bustillos MD [Primary Care Provider] - As needed Forms: Work/School Release Medical Decision Making - Enrique Inquiry Pt receiving controlled substance: No Enrique was queried for this patient: No Vital Signs: 08/07/21 11:30 Temperature 98.0 F Temperature Source Oral Pulse Rate [Right Brachial] 102 H Respiratory Rate 18 Blood Pressure [Right Arm] 140/96 H Blood Pressure Mean [Right Arm] 110 Blood Pressure Source [Right Arm] Automatic Cuff Blood Pressure Position [Right Arm] Sitting 02 Sat by Pulse Oximetry 95 Oxygen Delivery Method Room Air [facility] [place] HPI - General Stated complaint: covid exposure Time Seen by Provider: 08/07/21 12:02 Mode of Arrival: Ambulatory Source of Information: Patient Limitations: No Limitations Description of Symptoms (Recalled from Triage Doc. by RN): COVID TEST D/T EXPOSURE. DENIES SYMPTOMS HEENT Symptoms (Recalled from RN notes): No Resp Symptoms (Recalled from RN notes): No Skin Symptoms (Recalled from RN notes): No MS Symptoms (Recalled from RN notes): No Functional Status (Recalled from RN notes): WNL - History of Present Illness Provider Complaint: Patient state that tested positive for COVID yesterday but has not been having any symptoms States that she is not having any symptoms but wanted to get tested - Related Data Home Medications Medication Instructions Recorded Confirmed ibuprofen 200 mg tablet 200 mg PO Q6H PRN 05/06/20 05/05/21 omeprazole 40 mg capsule,delayed 40 mg PO DAILY 05/06/20 05/05/21 release alprazolam 0.5 mg tablet 0.5 mg PO QID PRN tab 10/23/20 05/05/21 metoprolol succinate 50 mg 50 mg PO BID tab 10/23/20 05/05/21 tablet,extended release 24 hr Allergies Allergy/AdvReac Type Severity Reaction Status Date / Time No Known Allergies Allergy Verified 05/05/21 13:53 - Worker's Comp Is this a Worker's Comp case?: No H History - Hepatitis A Screen Drug use history?: No High risk sexual behaviors?: No History of sexually transmitted infection?: No Currently employed?: No Childcare worker?: No Do you have indoor plumbing?: Yes Do you have electricity?: Yes Attestation statement:: This patient has been screened for Hepatitis A risk factors. I have reviewed the patient's past medical history: Yes Medical History: Reports:: Gastroesophageal Reflux Disease(GERD), Palpitations Other Surgeries: Yes: Colonoscopy, Comment: b/l hand surgery - Social History Smoking Status: Never smoker Alcohol Intake: current Alcohol Intake Frequency:: 0-2 drinks per day Occupational Status: other Family Hx:: Cancer ROS Obtained: Yes All systems reviewed & no additional complaints, Yes Systems reviewed as appropriate &
[2021-08-07 12:06] VITALS: BP 140/96; PULSE 102; RESP 18; TEMP 36.7; O2SAT 95
== END 2021-08-07 12:14 | disposition home or self-care (01) ==
PROVIDERS: Emergency Provider Nurse Practitioner; PCP Family Medicine
DX: Z20.822 Contact with and (suspected) exposure to COVID-19 (principal)
CPT/HCPCS: 99202; G0463; U0003

== ENCOUNTER → 2022-07-15 10:26 | Outpatient (CLI) | payer BC, SELFPAY ==
--- NOTE | 2022-07-15 10:39 | US_ITS ---
FINAL REPORT CLINICAL HISTORY: pelvic pain FINDINGS: Transvaginal sonographic images of the pelvis were obtained. The uterus is retroverted measuring 4.7 x 3.5 x 4.2 cm. The uterus has a somewhat lobular contour, uterine fibroid is not excluded. The endometrium measures 5 mm which is mildly thickened in the postmenopausal patient, nonspecific. The right ovary measures 2.1 by 1.4 x 1.3 cm. The left ovary measures 1.4 x 1.4 x 0.78 cm. No free fluid is seen in the pelvis. IMPRESSION: Mildly thickened endometrium in a postmenopausal patient which is abnormal but nonspecific. Reviewed, Interpreted and Dictated by Vaibhav White III, MD Transcribed by Kylah Corona Authenticated and [facility]
== END ==
LOC: RAD 10:27
PROVIDERS: PCP Family Medicine; Visit Provider Obstetrics & Gynecology
DX: R10.2 Pelvic and perineal pain (principal)
CPT/HCPCS: 76830

== ENCOUNTER → 2022-07-27 09:52 | Outpatient (CLI) | payer BC, SELFPAY ==
--- NOTE | 2022-07-27 09:52 | CT_ITS ---
FINAL REPORT CLINICAL HISTORY: Left lower pelvic pain FINDINGS: CT OF THE ABDOMEN AND PELVIS WITH CONTRAST Axial CT images of the abdomen and pelvis were obtained after the administration of oral and iv contrast. Coronal reformatted images were also obtained and reviewed.This study was performed with techniques to keep radiation doses as low as reasonably achievable (ALARA). Individualized dose reduction techniques using automated exposure control or adjustment of mA and/or kV according to the patient's size were employed. Abdomen: There is mild bibasilar atelectasis or scarring. The heart is normal in size. The liver has an unremarkable appearance, without evidence of mass or biliary ductal dilatation. There is nonspecific gallbladder wall thickening. The spleen is unremarkable. No adrenal mass is present. The pancreas has an unremarkable appearance. The kidneys are normal, without evidence of mass or hydronephrosis. The aorta is normal in caliber. There is no free fluid or adenopathy. No mass or abnormal fluid collection is seen. There is a small umbilical hernia containing fat. Pelvis: The appendix is normal. The urinary bladder is unremarkable. The uterus has a mild lobular contour of the could represent fibroids. There is no evidence of mass or adenopathy. There is no evidence of bowel obstruction. IMPRESSION: No evidence of acute intra-abdominal process. Normal appendix. Nonspecific gallbladder wall thickening. Possible fibroid uterus. If indicated, follow-up with pelvic ultrasound. Reviewed, Interpreted and Dictated by Vaibhav White III, MD Transcribed by Wicho Olivo Authenticated and . [facility]
== END ==
LOC: RAD 09:52
PROVIDERS: PCP Family Medicine; Visit Provider Surgery
DX: R10.30 Lower abdominal pain, unspecified (principal)
CPT/HCPCS: 74177; Q9967

== ENCOUNTER 2022-12-13 11:46 | Emergency (ER) | payer BC, SELFPAY ==
[2022-12-13] VITALS (7 sets, daily range): BP systolic 100–129; BP diastolic 68–93; PULSE 61–85; RESP 16–22; TEMP 36.7; O2SAT 91–100; BMI 22.3
[2022-12-13 12:06] LABS: Influenza A, PCR Not Detected (NotDetected); Influenza B, PCR Not Detected (NotDetected)
--- NOTE | 2022-12-13 12:17 | HMH.EDGENADL ---
Discharge Plan Disposition Patient Disposition: Home, Self-Care Condition: Good Prescriptions Prescriptions: New ondansetron 4 mg tablet,disintegrating 4 mg PO Q8H PRN (Reason: nausea and vomiting) Qty: 10 0RF Paxlovid (EUA) 300 mg (150 mg x 2)-100 mg tablets,dose pack See Rx Instructions .Route .COMPLEX Qty: 30 0RF Rx Instructions: take TWO 150 mg tablets of nirmatrelvir with ONE 100 mg tablet of ritonavir twice daily for 5 days No Action quetiapine 50 mg tablet 50 mg PO QHS ibuprofen 200 mg tablet 200 mg PO Q6H PRN (Reason: pain) omeprazole 40 mg capsule,delayed release(DR/EC) 40 mg PO DAILY metoprolol succinate 50 mg tablet extended release 24 hr 50 mg PO BID Label Comments: TK 1 T PO QD alprazolam 0.5 mg tablet 0.5 mg PO QID PRN Label Comments: TK 1 T PO QID PRN Referrals Follow up/Referrals: Karol Solitario MD [Staff Physician] - See instructions Heriberto Bustillos MD [Primary Care Provider] - See instructions Activity Restrictions/Add. Instructions Additional Instructions/Restrictions: Paxlovid as prescribed. Consult with pharmacist regarding dosage of Xanax while on Paxlovid. Zofran as needed for nausea. Follow-up with your primary care provider regarding elevated liver enzymes. Follow-up with press reader, Dr. Solitario, regarding your low white blood cell count. Return to the emergency department if shortness of breath or intractable vomiting. ADDITIONAL INSTRUCTIONS FOR COVID-19: Rest, drink plenty of fluids. Ibuprofen for fever and/or aches and pains. Monitor your symptoms. IF YOU HAVE AN EMERGENCY WARNING SIGN (INCLUDING TROUBLE BREATHING), SEEK EMERGENCY MEDICAL CARE IMMEDIATELY. COVID-19 Isolation: People with COVID-19 should isolate for 5 days. Then if they are asymptomatic (no symptoms) or their symptoms are resolving (without fever for 24 hours), follow that by 5 days of wearing a mask when around others to minimize the risk of infecting people you encounter. If you test positive for COVID-19 and never develop symptoms, day 0 is the day of your positive viral test (based on the date you were tested) and day 1 is the first full day after your positive test. If you develop symptoms after testing positive, your 5-day isolation period must start over. Day 0 is your first day of symptoms. Day 1 is the first full day after your symptoms developed. What to do: Stay in a separate room from other household members, if possible. Use a separate bathroom, if possible. Avoid contact with other members of the household and pets. Don?t share personal household items, like cups, towels, and utensils. Wear a mask when around other people if able. Clinical Impressions Clinical Impression: COVID-19 virus infection, Neutropenia, Elevated liver enzymes, Acute hyperventilation, Alcohol use disorder Instructions Patient Instructions: DI for Alcohol Use Disorder, DI for Hyperventilation, DI for COVID-19 (Suspected or Confirmed ) Discharge ED Provider: Micah Greenfield General Adult HPI General Chief complaint: Nausea/Vomiting/Diarrhea Stated complaint: shaky,pain,flu Time Seen by Provider: 12/13/22 12:11 Mode of Arrival: Ambulatory Source of Information: Patient Limitations: No Limitations Description of Symptoms (Recalled from ER Triage Doc. by RN): Pt reports body aches, fever, headaches, ernesto ear pain, nausea x3 days, diarrhea that started lastnight. Pt reports she feels like she can't control her hand movements and they are drawing up. Pt has rapid respirations upon arrival to ED. History of Present Illness HPI narrative: History obtained from patient and . states that he came home from work on Wednesday with a flulike illness that persisted for 3 to 4 days. He was not tested or treated. The patient developed symptoms on Wednesday. She complains of being dehydrated. She says she has had vomiting, diarr
--- NOTE | 2022-12-13 12:25 | XR_ITS ---
PROCEDURE INFORMATION: Exam: XR Chest Exam date and time: 12/13/2022 12:26 PM Age: 52 years old Clinical indication: Cough and other: Shaking uncontrollably. Patient HX: Cough, shaking uncontrollably due to her mother's recent passing she stated. TECHNIQUE: Imaging protocol: Radiologic exam of the chest. Views: 2 views. COMPARISON: CT CHEST WO CON 03/07/2021 2:31 PM FINDINGS: Lungs: Unremarkable. No consolidation. Pleural spaces: Unremarkable. No pleural effusion. No pneumothorax. Heart/Mediastinum: Unremarkable. No cardiomegaly. Bones/joints: Unremarkable for age. IMPRESSION: Negative chest
[2022-12-13 12:28] LABS: Coronavirus 19, PCR Detected (NotDetected)
--- NOTE | 2022-12-13 12:33 | PC.NURSE ---
pt going to rad
--- NOTE | 2022-12-13 12:37 | PC.NURSE ---
pt return from radiology notified RT of abg order
--- NOTE | 2022-12-13 12:39 | PC.NURSE ---
pt back from rad
[2022-12-13 12:42] LABS: Basophils % 1.8 % (0.1-2.0); Chloride 103 mmol/L (98-107); Hematocrit 41.5 % (37.0-47.0); Hemoglobin 13.8 g/dL (12.2-16.2); Lymphocytes # 0.5 K/mm3 (0.7-4.5); Lymphocytes % 27.6 % (10-50); Mean Corpuscular HGB Conc 33.3 g/dL (31.8-35.4); Mean Corpuscular Hemoglobin 29.6 pg (27.0-31.2); Mean Corpuscular Volume 88.6 fl (81-99); Mean Platelet Volume 8.8 fl (7.4-10.4); Monocytes # 0.1 K/mm3 (0.1-1.0); Monocytes % 7.9 % (1.7-9.3); Neutrophils # 1.1 K/mm3 (1.8-7.8); Neutrophils % 61.8 % (37.0-80.0); Platelet Count 101 K/mm3 (142-424); Potassium 3.8 mmoL/L (3.5-5.1); Red Blood Count 4.68 M/mm3 (4.20-5.40); Red Cell Distribution Width 14.4 % (11.5-17.5); Sodium 137 mmol/L (136-145); White Blood Count 1.8 K/mm3 (4.8-10.8)
[2022-12-13 12:45] LABS: Alanine Aminotransferase 220 U/L (12-78); Albumin Level 4.6 g/dl (3.5-5.0); Albumin/Globulin Ratio 1.5 (1.1-1.8); Alkaline Phosphatase 139 U/L (38-126); Anion Gap 14.8 mEq/L (5-15); Aspartate Amino Transferase 514 U/L (14-36); Bilirubin,Total 0.6 mg/dl (0.2-1.3); Blood Urea Nitrogen 12 mg/dl (7-17); Carbon Dioxide 23 mmol/L (22.0-30.0); Creatinine Clearance Estimated 87 mL/min (50-200); Estimated Glomerular Filt Rate 88 ml/min (>60); GFR (African American) 106 ML/MIN (>60); Globulin 3.1 g/dL (1.3-3.2); Total Protein,Serum 7.7 g/dl (6.3-8.2)
[2022-12-13 12:46] LABS: Calcium 9.2 mg/dl (8.4-10.2); Glucose 181 mg/dl (74-100)
[2022-12-13 12:47] LABS: Strep Scrn Group A (Rapid) Negative (Negative)
[2022-12-13 12:54] LABS: ABG Base Excess -4.2 mmol/L (-2.4-2.3); ABG HCO3 18.6 mmhg (22.0-26.0); ABG Oxygen Saturation 98 % (90-100); ABG PCO2 23.1 mmhg (35.0-45.0); ABG PH 7.52 mmol/L (7.35-7.45); ABG PO2 93.5 mmhg (80-100); ABG TCO2 19.3 mmhg (23-27)
[2022-12-13 12:55] LABS: Allen's Test Acceptable; Oxygen RA %; Source Right Radial
[2022-12-13 12:58] LABS: Troponin I < 0.01 ng/ml (0.00-0.034)
--- NOTE | 2022-12-13 13:00 | PC.NURSE ---
called dietary to see if they could bring pt a red gatorade
[2022-12-13 13:01] LABS: Lipase 118 U/L (23-300)
--- NOTE | 2022-12-13 14:05 | PC.NURSE ---
checked on pt at this time, pt states no needs. significant other at bs, pt reports she is feeling better
[2022-12-15 22:11] LABS: Hep A Ab, IgM NEGATIVE; Hepatitis B Core Antibody IgM NEGATIVE; Hepatitis B Surface Antigen NEGATIVE; Hepatitis C Antibody <0.1
== END 2022-12-13 14:38 | disposition home or self-care (01) ==
PROVIDERS: Emergency Provider Emergency Medicine; PCP Family Medicine
DX: U07.1 COVID-19 (principal); D70.9 Neutropenia, unspecified; R94.5 Abnormal results of liver function studies; R06.4 Hyperventilation; F10.99 Alcohol use, unspecified with unspecified alcohol-induced disorder; Z20.822 Contact with and (suspected) exposure to COVID-19
CPT/HCPCS: 36415; 71046; 80053; 80074; 82803; 83690; 84484; 85025; 87430; 96361; 96374; 99285; C9803; J2405; U0003; U0005

== ENCOUNTER 2024-06-02 13:20 | Outpatient (CLI) | payer BC, SELFPAY ==
--- NOTE | 2024-06-02 13:21 | MM_ITS ---
PROCEDURE INFORMATION: Exam: MG Bilateral Screening 3D Mammography Exam date and time: 06/02/2024 1:20 PM Age: 54 years old Clinical indication: Screening examination TECHNIQUE: Imaging protocol: Bilateral Screening tomosynthesis and 2D mammography including computer-aided detection (CAD) when performed. COMPARISON: No relevant prior studies available. FINDINGS: MAMMOGRAPHY: Breast composition: The breasts are extremely dense, which lowers the sensitivity of mammography. Mass: None. Architectural distortion: None. Calcifications: No suspicious calcifications. Asymmetric density: None. Skin thickening: None. Axillary adenopathy: None. IMPRESSION: No mammographic evidence of malignancy. Annual screening is recommended unless otherwise clinically indicated. ASSESSMENT: BI-RADS Category 1: Negative
== END 2024-06-02 23:59 | disposition home or self-care (01) ==
LOC: RAD 13:21
PROVIDERS: PCP Family Medicine; Visit Provider Obstetrics & Gynecology
DX: Z12.31 Encounter for screening mammogram for malignant neoplasm of breast (principal)
CPT/HCPCS: 77063; 77067

== ENCOUNTER 2024-06-19 12:18 | Outpatient (CLI) | payer BC, SELFPAY ==
--- NOTE | 2024-06-19 12:26 | XR_ITS ---
FINAL REPORT CLINICAL HISTORY: PAIN IN JOINT SHOULDER COMPARISON: None FINDINGS: Three views show no evidence of acute displaced fracture or dislocation of the visualized bony architecture. The joint spaces appear normal. IMPRESSION: Unremarkable exam. Reviewed, Interpreted and Dictated by David Hurley MD Transcribed by Tamanna Ta Authenticated and [facility]
== END 2024-06-19 23:59 | disposition home or self-care (01) ==
LOC: RAD 12:19
PROVIDERS: PCP Family Medicine; Visit Provider Family Medicine
DX: M25.512 Pain in left shoulder (principal)
CPT/HCPCS: 73030

== ENCOUNTER 2024-07-06 13:19 | Outpatient (CLI) | payer BC, SELFPAY ==
[2024-07-06 13:47] LABS: Blood Urea Nitrogen 16 mg/dl (7-17); Estimated Glomerular Filt Rate 74 ml/min (>60); GFR (African American) 90 ML/MIN (>60)
== END 2024-07-06 23:59 | disposition home or self-care (01) ==
LOC: LAB 13:19
PROVIDERS: PCP Family Medicine; Visit Provider Family Medicine
DX: G44.52 New daily persistent headache (NDPH) (principal)
CPT/HCPCS: 36415; 82565; 84520

== ENCOUNTER 2024-07-10 13:39 | Outpatient (CLI) | payer BC, SELFPAY ==
--- NOTE | 2024-07-10 13:47 | MR_ITS ---
FINAL REPORT CLINICAL HISTORY: HEADACHE. right sided frontal headache. dizziness COMPARISON: None FINDINGS: Multiplanar MR imaging of the brain was performed without and with contrast. There is no evidence of intracranial hemorrhage or mass. No abnormal extra-axial fluid collection is seen. The ventricular size is within normal limits. There is no evidence of shift of the midline structures. The posterior fossa and brainstem have an unremarkable appearance. No area of abnormal restricted diffusion is identified. No abnormal contrast enhancement is seen. Normal major vessel vascular flow voids are noted. There is mucoperiosteal thickening in multiple sinuses and right mastoid air cells consistent with sinusitis. IMPRESSION: No acute intracranial abnormality identified. Sinusitis. Reviewed, Interpreted and Dictated by Vaibhav White III, MD Transcribed by Tamanna Ta Authenticated and [facility]
[2024-07-10] MEDS: GADOTERIDOL INJ 20ML SYRINGE 12 ML IV (14:26)
[2024-07-10] MEDS: SODIUM CHLORIDE 0.9% 10ML SYR (RAD ONLY) 10 ML IV (14:26)
== END 2024-07-10 23:59 | disposition home or self-care (01) ==
LOC: RAD 13:40
PROVIDERS: PCP Family Medicine; Visit Provider Family Medicine
DX: G44.52 New daily persistent headache (NDPH) (principal)
CPT/HCPCS: 70553; A9576

== ENCOUNTER 2025-02-19 16:08 | Outpatient (CLI) | payer BC, SELFPAY ==
--- NOTE | 2025-02-19 16:22 | ECG_ITS ---
APPROVED REPORT Exam: Resting ECG HR:61 bpm ECG Measurements Heart Rate 61 AXES HI 163 P 73 QRSd 85 QRS 74 QT 403 T 70 QTc 406 Conclusion SINUS RHYTHM NORMAL ECG UNCONFIRMED REPORT Electronically signed by : Dru Rodriguez MD 02/20/2025 21:06:29
== END 2025-02-19 23:59 | disposition home or self-care (01) ==
LOC: RT 16:08
PROVIDERS: PCP Family Medicine; Visit Provider Family Medicine
DX: R07.89 Other chest pain (principal)
CPT/HCPCS: 93005

== ENCOUNTER 2025-07-20 14:08 | Outpatient (CLI) | payer BC, SELFPAY ==
--- OUTSIDE RECORDS SUMMARY | 2025-02-19 11:15 | XMS_ITS ---
Author Organization Shahid Address 1210 [facility] [address] [place] [id number] Care Team Providers Care Clay Products Glazer Name Role Phone Jayden Garcia Primary Care Provider [phone] Juan Talbot Unavailable [phone] Allergies No Known Allergies Results Component Value Reference Range Notes EKG Reviewed date:02/23/2025 06:41:28 PM Interpretation:Normal Performing Lab: Notes/Report: Normal REASON FOR VISIT occasional sharp pains in chest Medications Medication SIG (Take, Route, Frequency, Duration) Notes Start Date End Date Status Famotidine 40 MG 1 tablet Orally Once a day 2024 Active Xanax 0.5 MG 1 tab orally four ti mes a day as needed 02/08/2025 Active Metoprolol Succinate ER 50 MG 1 tab(s) Orally Two times a day Active Clobetasol Propionate 0.05 % 1 wilian applied topically 2 times a day Active Problems Problem Type SNOMED Code ICD Code Onset Dates Problem Status W/U Status Risk Notes Problem Constipation, unspecified constipation type (K59.00) Active confirmed Vital Signs Blood pressure systolic 114 mm Hg 02/20/20 25 Blood pressure diastolic 70 mm Hg 025 Heart Rate 104 /min 02/19/2025 Height 66.75 in 02/19/2025 Weight 137.6 lbs 02/19/2025 BMI 21.71 kg/m2 02/19/2025 Encounters Encounter Location Date Provider Diagnosis [facility] [address] [place] [address] [place] [phone] 02/19/2025 Juan Talbot Atypical chest pain R07.89 and Gastroesophageal reflux disease without esophagitis K21.9 Assessments Encounter Date Diagnosis (ICD Code) Assessment Notes Treatment Notes Treatment Clinical Notes Section Notes 02/19/2025 Atypical chest pain (ICD-10 - R07.89) 02/19/2025 Gastroesophageal reflux disease without esophagitis (ICD-10 - K21.9) Plan Of Treatment Medication Medication Name Sig Start Date Stop Date Notes Famotidine 40 MG 1 tablet Orally Once a day 02/19/2025 Next Appt Details Follow Up: via phone to repo rt progress, Reason: Progress Notes * Gabriella TRANOB: (55 yo F)Acc No.[id number]:02/19/2025 Progress Notes Patient: Gabriella CASTAÑEDA Provider: Tressa Talbot M.D. :1970 A ge:55 Y S ex:Female Date:02/19/2025 Address:[address] [place] [id number] Pcp:Jayden Garcia Subjective: * Chief Complaints: * 1 . Occasional sharp pains in chest. * HPI: C ardiology: 55 year old female presents with c/o Chest Pain P t complains of off and on chest pain since . Pt states she has feel lots of tightnbess and pressure then pain . Pt states she has had palpitations and flutters for about 24 years and has never had pain until now. Pt states pain is on lt side of chest that does radiate to her back. * ROS: D ERMATOLOGY: no R michelle. n o H saeed. G ASTROENTEROLOGY: no N ausea. n o V omiting. U ROLOGY: no D ifficulty urinating. n o B lood in urine. 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 * Surgical History: C -section , LT Ring Finger Ganglion Cyst Removal 02/2009, RT Ring Finger Ganglion Cyst Removal 03/2010. * Hospitalization/Major Diagno stic Procedure: H MH ER Bronchitis- [facility] ER 11/2008, Elevated Heart Rate- [facility] 10/2020, Sinus Infection- [facility] [place], Fractured LT Foot- [facility] ER 02/18/2021, Covid- [facility] ER 12/13/2022. * Family History: F ather: alive. M other: alive. P aternal Grand Father: . P aternal Grand Mother: . M aternal Grand Father: . M aternal Grand Mother: . 2 brother(s) , 1 sister(s) . 2 son(s) - healthy. . 1 brother with osteosarcoma at 17 yr. old. * Social History: C URRENT TOBACCO USE S moking Status: Patient does NOT smoke. C affeine: yes, frequency:tea, soda. Exercise: yes. Home smoke detector use: yes. Marital Status: . New since last visit: none. 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 Past smoking status: no, Smoking status: Does not smoke exposed to secondhand smoke at work. Occup. exposure: none. Recreational drug use: no. Alcohol: socially, Type: wine , Frequency:3 x week ,Years: , Determination:. Travel ouside [place]: no. * Medications: T aking Xanax 0.5 MG Tablet 1 tab orally four times a day as needed , Taking Metoprolol Succinate ER 50 MG Tablet Extended Release 24 Hour 1 tab(s) Orally Two times a day , Taking Clobetasol Propionate 0.05 % Ointment 1 wilian applied topically 2 times a day , Medication List reviewed and reconciled with the patient * Allergies: N .K.D.A. Objective: * Vitals: W t:137.6, Temp:97.8, BP:114/70, HR:104, Nurse:jorge, Ht: 66.75, BMI:21.71. * Examination: C ardiology: General Appearance: p leasant, NAD. H EENT: u nremarkable. H eart sounds: R RR, normal S1, S2. M urmur, click , gallop: n one. L ungs: c lear, no rales or wheezes. E xtremities: n o leg edema. P eripheral pulses:? 2 plus bilateral. Assessment: * Assessment: 1. A typical chest pain - R07.89 (Primary) 2 . G astroesophageal reflux disease without esophagitis - K21.9 Plan: * Treatment: 2.?Gastroesophageal reflux disease without esophagitis? Start Famotidine Tablet, 40 MG, 1 tablet, Orally, Once a day.?? * Procedure Codes: 3 074F SYST BP LT 130 MM HG, 3078F DIAST BP < 80 MM HG * Follow Up: v ia phone to report progress * Images: Billing Information: * Visit Code: 60145 Office Visit, Est Pt., Level 3. * Procedure Codes: 3074F SYST BP LT 130 MM HG. 3078F DIAST BP < 80 MM HG. * Electronic signature of Enriqueta Talbot MD on 07/20/2025 at 02:11 PM EDT Sign off status: Pending * Provider: Tressa Talbot M.D. Date: 0 02/19/2025 Generated for Sara choi/Temo/Nay on: 0 07/20/2025 02:11 PM EDT History and Physical Notes * HPI (History of Present Illness) Category Sub-Category Detail Notes Category Not es Cardiology Chest Pain Pt complains of off and on chest pain since . Pt states she has feel lots of tightnbess and pressure then pain . Pt states she has had palpitations and flutters for about 24 years and has never had pain until now. Pt states pain is on lt side of chest that does radiate to her back Examination Category Sub-Category Detail Notes Category Not es Cardiology Lungs: clear, no rales or wheezes HEENT: unremarkable Heart sounds: RRR, normal S1, S2 Extremities: no leg edema Murmur, click , gallop: none Peripheral pulses: 2 plus bilateral General Appearance: pleasant, NAD
--- OUTSIDE RECORDS SUMMARY | 2025-05-31 10:45 | XMS_ITS ---
Author Organization [facility]id Address 1210 [facility] [address] [place] [id number] Care Team Providers Care Mechanical Intern Name Role Phone Jayden Garcia Primary Care Provider Daisy Bustillos [phone] Allergies No Known Allergies REASON FOR VISIT refills Medications Medication SIG (Take, Route, Frequency, Duration) Notes Start Date End Date Status Xanax 0.5 MG 1 tab orally four ti mes a day as needed 05/31/2025 Active Clobetasol Propionate 0.05 % APPLY TO AFFECTED AREA 2 TIMES A DAY; Duration: 30 Active Famotidine 40 MG 1 tablet Orally Once a day 02/19/2025 Not-Taking Clobetasol Propionate 0.05 % 1 wilian applied topically 2 times a day Active Metoprolol Succinate ER 50 MG 1 tab(s) Orally Two times a day Active Vital Signs Blood pressure systolic 118 mm Hg 05/31/20 25 Blood pressure diastolic 70 mm Hg 025 Heart Rate 72 /min 05/31/2025 Height 66.75 in 05/31/2025 Weight 138.8 lbs 05/31/2025 BMI 21.9 kg/m2 05/31/2025 Encounters Encounter Location Date Provider Diagnosis [facility] 1210 [facility] [address] [place] [id number] 05/31/2025 Daisy Bustillos Anxiety disorder, unspecified F41.9 ; Cardiac arrhythmia, unspecified I49.9 ; Intrinsic eczema L20.84 ; Palmar fascial fibromatosis [Dupuytren] M72.0 and BMI 21.0-21.9, adult Z68.21 Assessments Encounter Date Diagnosis (ICD Code) Assessment Notes Treatment Notes Treatment Clinical Notes Section Notes 05/31/2025 Anxiety disorder, unspecified (ICD-10 - F41.9) 05/31/2025 Cardiac arrhythmia, unspecified (ICD-10 - I49.9) 05/31/2025 Intrinsic eczema (ICD-10 - L20.84) 05/31/2025 Palmar fascial fibromatosis [Dupuytren] (ICD-10 - M72.0) 05/31/2025 BMI 21.0-21.9, adult (ICD-10 - Z68.21) Plan Of Treatment Medication Medication Name Sig Start Date Stop Date Notes Xanax 0.5 MG 1 tab orally four ti mes a day as needed 05/31/2025 Clobetasol Propionate 0.05 % 1 wilian appli ed topically 2 times a day Metoprolol Succinate ER 50 MG 1 tab(s) O rally Two times a day Next Appt Details Follow Up: 4 Months, Reason: Progress Notes * Gabriella TRANOpalOB: (55 yo F)Acc No.[id number]:05/31/2025 Progress Notes Patient: Gabriella CASTAÑEDA Provider: Daisy Bustillos M.D. :1970 A ge:55 Y S ex:Female Date:05/31/2025 Address:[address] [place] [address] [place] [id number] Pcp:Jayden Garcia Subjective: * Chief Complaints: * 1 . Refills. * HPI: H PI: 55 year old female presents with c/o Patient is here today for?Pt is here today for refills on medications. R heumatology: She is having a little more pain from the nodules in her hands and has now noticed a few bands developing on her feet as well. P sychology: She still admits to occasional anxiety attacks which she is managing. She remains abstinent from the alcohol. * ROS: D ERMATOLOGY: no R michelle. n o H saeed. G ASTROENTEROLOGY: no N ausea. n o V omiting. U ROLOGY: no D ifficulty urinating. n o B lood in urine. 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 * Surgical History: C -section , LT Ring Finger Ganglion Cyst Removal 02/2009, RT Ring Finger Ganglion Cyst Removal 03/2010. * Hospitalization/Major Diagno stic Procedure: H MH ER Bronchitis- [facility] ER 11/2008, Elevated Heart Rate- [facility] 10/2020, Sinus Infection- [facility] UTC 11/2020, Fractured LT Foot- [facility] ER 02/18/2021, Covid- [facility] ER 12/13/2022. * Family History: F ather: alive. M other: . P aternal Grand Father: . P aternal Grand Mother: . M aternal Grand Father: . M aternal Grand Mother: .?2 brother(s) , 1 sister(s) . 2 son(s) [...] ouside [place]: no. * Medications: T aking Metoprolol Succinate ER 50 MG Tablet Extended Release 24 Hour 1 tab(s) Orally Two times a day , Taking Clobetasol Propionate 0.05 % Ointment APPLY TO AFFECTED AREA 2 TIMES A DAY , Taking Xanax 0.5 MG Tablet 1 tab orally four times a day as needed , Not-Taking Famotidine 40 MG Tablet 1 tablet Orally Once a day , Medication List reviewed and reconciled with the patient * Allergies: N .K.D.A. Objective: * Vitals: W t: 138.8, Temp: 97.8, BP: 118/70, HR: 72, Nurse: naseem, Ht: 66.75, BMI:21.9. * Examination: G eneral Examination: General Appearance: A ffect is quite good. N annamaria: s upple, no lymphadenopathy. H eart: R SR. L ungs: c lear to auscultation. N eurologic Exam: N o tremor. E xtremities: n o leg edema. She has a palpable, tender nodules in the palm of both hands, L>R. No contractures at present... Assessment: * Assessment: 1. A nxiety disorder, unspecified - F41.9 (Primary) 2 . C ardiac arrhythmia, unspecified - I49.9 3 . I ntrinsic eczema - L20.84 4 . P almar fascial fibromatosis [Dupuytren] - M72.[address] 21.0-21.9, adult - Z68.21? Plan: * Treatment: 2. C ardiac arrhythmia, unspecified Continue Metoprolol Succinate ER Tablet Extended Release 24 Hour, 50 MG, 1 tab(s), Orally, Two times a day. 3. I ntrinsic eczema Continue Clobetasol Propionate Ointment, 0.05 %, 1 wilian, applied topically, 2 times a day. ? * Procedure Codes: 1 036F TOBACCO NON-USER, G8420 BMI<30 AND >=22 CALC & DOCU, G8783 BP SCR PRFRM RCMDD DEFIND SCR INTVL, G8752 MOST RECENT SYSTOLIC BP < 140MM HG, G8754 MOST RECENT DIASTOLIC BP < 90MM HG * Follow Up: 4 Months * Images: Billing Information: * Visit Code: 19018 Office Visit, Est Pt., Level 3. * Procedure Codes: 1036F TOBACCO NON-USER. G8420 BMI<30 AND >=22 CALC & DOCU. G8783 BP SCR PRFRM RCMDD DEFIND SCR INTVL. G8752 MOST RECENT SYSTOLIC BP < 140MM HG. G8754 MOST RECENT DIASTOLIC BP < 90MM HG. * Electronic signature of Daisy Bustillos MD on 07/20/2025 at 02:11 PM EDT Sign off status: Pending * Provider: Daisy Bustillos M.D. Date: 05/31/2025 Generated for Sara chio/Faxing/eTransmitting on: 0 07/20/2025 02:11 PM EDT History and Physical Notes * HPI (History of Present Illness) Category Sub-Category Detail Notes Category Not es Psychology She still admit s to occasional anxiety attacks which she is managing. She remains abstinent from the alcohol. Rheumatology She is having a little more pain from the nodules in her hands and has now noticed a few bands developing on her feet as well. HPI Patient is here today for Pt is here today for refills on medications Examination Category Sub-Category Detail Notes Category Not es General Examination Heart: RSR Lungs: clear to auscultatio n Extremities: no leg edema. She wiseman s a palpable, tender nodules in the palm of both hands, L>R. No contractures at present.. General Appearance: Affect is quite good Neurologic Exam: No tremor Neck: supple, no lymphaden opathy
--- OUTSIDE RECORDS SUMMARY | 2025-06-18 05:13 | XMS_ITS ---
Author Organization Shahid Address 1210 [facility] [address] [place] [phone] Care Team Providers Care Stockroom Keeper Name Role Phone Jayden Garcia Primary Care Provider [phone] REASON FOR VISIT due mamm, col Encounters Encounter Location Date Provider Diagnosis [facility] [address] [place] [phone] 06/18/2025 Jayden Garcia Screening for breast cancer Z12.39 Assessments Encounter Date Diagnosis (ICD Code) Assessment Notes Treatment Notes Treatment Clinical Notes Section Notes 06/18/2025 Screening for breast cancer (ICD-10 - Z12.39) Plan Of Treatment Pending Test Test Name Order Date Mammogram 06/18/2025 Progress Notes * Gabriella TRANOB: (55 yo F)Acc No.[id number]:06/18/2025 Patient: Gabriella CASTAÑEDA :1970 A ge:55 Y S ex:Female Address:[facility] [place] [address] Subjective: * Chief Complaints: * D ue mamm, col * Medical History: * Surgical History: * Hospitalization/Major Diagno stic Procedure: * Medications: Objective: * Vitals: * Physical Examination: Assessment: * Assessment: 1. S creening for breast cancer - Z12.39 (Primary) Plan: * Treatment: * Procedure Codes: * true * Date: Generated for Printi ng/Faxing/eTransmitting on: 0 07/20/2025 02:11 PM EDT
--- OUTSIDE RECORDS SUMMARY | 2025-07-20 14:11 | XMS_ITS | Patient Health Record ---
[facility] 1210 [facility] [address] [place] [phone] Care Team Providers Care Marble Installer Name Role Phone Jayden Garcia Primary Care Provider Daisy Bustillos Unavailable [phone] Juan Talbot Unavailable [phone] Allergies No Known Allergies Results Component Value Reference Range Notes EKG Reviewed date:02/23/2025 06:41:28 PM Interpretation:Normal Performing Lab: Notes/Report: Normal Medications Medication SIG (Take, Route, Frequency, Duration) [...] tab(s) Orally Two times a day Active Immunizations Vaccine Route Administration Date Status Comme nts Twinrix-Hep A and Hep B Unknown 11/07/2018 Administered Twinrix-Hep A and Hep B Unknown 01/11/2019 Administered Twinrix-Hep A and Hep B Unknown 08/14/2019 Administered Problems Problem Type SNOMED Code ICD Code Onset Dates Problem Status W/U Status Risk Notes Problem Anxiety disorder (347970739) Anxiety disorder, unspecified (F41.9) Active confirmed Problem Primary insomnia (1878725) Primary insomnia (F51.01) Active confirmed Problem New daily persistent headache (111640332245716) New daily persistent headache (NDPH) (G44.52) Active confirmed Problem Chronic pain (14166401) Other chronic pain (G89.29) Active confirmed Problem Cardiac arrhythmia (510272109) Cardiac arrhythmia, unspecified (I49.9) Active confirmed Problem Contracture of palmar fascia (663247723) Palmar fascial fibromatosis [Dupuytren] (M72.0) Active confirmed Problem Constipation (38744002) Constipation, unspecified constipation type (K59.00) Active confirmed Problem Gastroesophageal reflux disease without esophagitis (831436764) Gastroesophageal reflux disease without esophagitis (K21.9) Active confirmed Problem Reactive depression (situational) (08970550) Situational depression (F43.21) Active confirmed Problem Gastroesophageal reflux disease with esophagitis (disorder) (043548362) GERD with esophagitis (K21.0) Active confirmed Problem New daily persistent headache (189474201363409) New daily persistent headache (G44.52) Active confirmed Problem Iron deficiency anemia (83173869) Iron deficiency anemia, unspecified iron deficiency anemia type (D50.9) Active confirmed Problem Ethanol abuse (99805090) ETOH abuse (F10.10) Active confirmed Problem Perennial allergic rhinitis (667170225) Perennial allergic rhinitis (J30.89) Active confirmed Problem Atopic dermatitis (75004360) Intrinsic eczema (L20.84) Active confirmed Vital Signs Heart Rate 72 /min 05/31/2025 Blood pressure diastolic 70 mm Hg 05/31/2025 Height 66.75 in 05/31/2025 Blood pressure systolic 118 mm Hg 05/31/2025 Weight 138.8 lbs 05/31/2025 BMI 21.9 kg/m2 05/31/2025 Encounters Encounter Location Date Provider Diagnosis [place] [facility] [address] [place] [phone] 10/10/2024 R Josh Bustillos Anxiety disorder, unspecified F41.9 ; Palmar fascial fibromatosis [Dupuytren] M72.0 ; Cardiac arrhythmia, unspecified I49.9 and Intrinsic eczema L20.84 [facility] 12[address] [facility] [address] [place] [id number] 02/08/2025 R Josh Bustillos Anxiety disorder, unspecified F41.9 ; Cardiac arrhythmia, unspecified I49.9 ; Intrinsic eczema L20.84 and Palmar fascial fibromatosis [Dupuytren] M72.0 [facility] [address] [place], [place] [phone] 02/19/2025 Juan Buffalo Atypical chest pain R07.89 and Gastroesophageal reflux disease without esophagitis K21.9 [facility] [address] [facility] [address] [place], [place] [id number] 05/31/2025 R Josh Bustillos Anxiety disorder, unspecified F41.9 ; Cardiac arrhythmia, unspecified I49.9 ; Intrinsic eczema L20.84 ; Palmar fascial fibromatosis [Dupuytren] M72.0 and BMI 21.0-21.9, adult Z68.21 [facility] [address] [place], [place] [id number] 02/23/2025 Juan [place] [facility] [address] [place] [facility] 36 [facility] [address] [place], [place] [id number] 05/07/2025 Daisy Bustillos Anxiety disorder, unspecified F41.9 [facility] [facility] [address] [place], [place] [phone] 06/18/2025 Jayden Garcia Screening for breast cancer Z12.39 Assessments Encounter Date Diagnosis (ICD Code) Assessment Notes Treatment Notes Treatment Clinical Notes Section Notes 10/10/2024 Anxiety disorder, unspecified (ICD-10 - F41.9) 10/10/2024 Palmar fascial fibromatosis [Dupuytren] (ICD-10 - M72.0) 02/08/2025 Anxiety disorder, unspecified (ICD-10 - F41.9) 02/08/2025 Cardiac arrhythmia, unspecified (ICD-10 - I49.9) 02/19/2025 Gastroesophageal reflux disease without esophagitis (ICD-10 - K21.9) 02/19/2025 Atypical chest pain (ICD-10 - R07.89) 05/07/2025 Anxiety disorder, unspecified (ICD-10 - F41.9) 05/31/2025 Anxiety disorder, unspecified (ICD-10 - F41.9) 05/31/2025 Cardiac arrhythmia, unspecified (ICD-10 - I49.9) 06/18/2025 Screening for breast cancer (ICD-10 - Z12.39) 05/31/2025 Intrinsic eczema (ICD-10 - L20.84) 02/08/2025 Intrinsic eczema (ICD-10 - L20.84) 10/10/2024 Cardiac arrhythmia, unspecified (ICD-10 - I49.9) 10/10/2024 Intrinsic eczema (ICD-10 - L20.84) 02/08/2025 Palmar fascial fibromatosis [Dupuytren] (ICD-10 - M72.0) 05/31/2025 Palmar fascial fibromatosis [Dupuytren] (ICD-10 - M72.0) 05/31/2025 BMI 21.0-21.9, adult (ICD-10 - Z68.21) Plan Of Treatment Pending Test Test Name Order Date Mammogram 06/18/2025 [id number]-[id number] Protein (CRP) 07/22/2023 Insurance Providers Payer Name Payer Address Payer Phone Subscriber Number Group Number Insured Name Patient Relationship to Insured Coverage Start Date Coverage End Date [employer] [address] [place] [address] [id number] Gabriella Tran Self - patient is the insured Medications Administered Medication Instructions Date of Administration Dosage Notes Dexamethasone 06/09/2018 1 mL Medical (General) History Medical History History ICD Code Anxiety Asthma Palpitations Multinodular Goiter 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[facility], [facility] GERD Varicose Veins ETOH Abuse Hx Dupuytrens contracture Surgical History Surgery Date(Month/Year) LT Ring Finger Ganglion Cyst Removal 2008 RT Ring Finger Ganglion Cyst Removal 2009 Hospitalization History Reason Date(Month/Year) Covid- [facility] ER 12/13/2022 Fractured LT Foot- [facility] ER 02/18/2021 Sinus Infection- [facility] UTC 11/2020 Elevated Heart Rate- [facility] 10/2020 [facility] ER Bronchitis- [facility] ER 11/2008
--- OUTSIDE RECORDS SUMMARY | 2025-07-20 14:12 | XMS_ITS | Clinical Summary ---
Author Organization [facility] Address [address] [place] [address] Care Team Providers Care Business Strategist Name Role Phone Provider, No Known Primary Care Provider Unavail able Allergies No known active allergies Medications omeprazole (priLOSEC) 20 MG capsule Take 20 mg by mouth Daily. Active metoprolol tartrate (LOPRESSOR) 50 MG tablet Take 50 mg by mouth 2 (Two) Times a Day. Active ALPRAZolam (XANAX) 0.5 MG tablet Take 0.5 mg by mouth 2 (Two) Times a Day As Needed for Anxiety. 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 If month not known, enter X' Black numbers = normal results Red numbers = abnormal results Black X = patient reported normal Red X - patient reported abnormal Referred by: Profession: Other info: Family History Medical History Relation Name Comments Osteoporosis Maternal Grandmother Breast cancer Neg Hx Colon cancer Neg Hx Endometrial cancer Neg Hx Ovarian cancer Neg Hx Uterine cancer Neg Hx Relation Name Status Comments Maternal Grandmother Social History Tobacco Use Types Packs/Day Years Used Date Smoking Tobacco: Never Smokeless Tobacco: Never Alcohol Use Standard Drinks/Week Comments Yes 0 (1 standard drink = 0.6 oz pur e alcohol) AUDIT-C Answer Date Recorded Frequency of Alcohol Consumption 4 or more times a week 11/25/2018 Average Number of Drinks Not on file Frequency of Binge Drinking Not on file 10/30 Abuse Screen Answer Date Recorded Unsafe at Home or Work/School Not on file Feels Threatened by Someone? Not on file 07/2023 Does Anyone Keep You from Co ntacting Others or Doint Things Outside the Home? Not on file 09/06/2023 Physical Sign of Abuse Present Not on file 1 Housing Stability Answer Date Recorded Current Living Arrangements Not on file 07/2023 Potentially Unsafe Housing Conditions Not on bg e 09/06/2023 Family and Community Support Answer Colby e Recorded Help with Day-to-Day Activities Not on file 09/06/2023 Lonely or Isolated Not on file 09/06/2023 Employment Answer Date Recorded Do you want help finding or keeping work or a ryley b? Not on file 09/06/2023 Disabilities Answer Date Recorded Concentrating, Remembering, or Making Decisions Difficulty Not on file 09/06/2023 Doing Errands Independently Difficulty Not on fi le 09/06/2023 Education Answer Date Recorded Help with school or training? Not on file Preferred Language Not on file 09/06/2023 Comments Unknown Sex and Gender Information Value Date Recorded Sex Assigned at Not on file Legal Sex Female 11:38 AM EDT Gender Identity Not on file Sexual Orientation Not on file Last Filed Vital Signs Vital Sign Reading Time Taken Comments Blood Pressure 122/84 11/25/2018 11:54 AM EST Pulse - - Temperature - - Respiratory Rate - - Oxygen Saturation - - Inhaled Oxygen Concentration - - Weight 62.5 kg (137 lb 12.8 oz) 018 11:54 AM EST Height 167.6 cm (5' 6 ) 11/25/2018 11:5 4 AM EST Body Mass Index 22.24 11/25/2018 11:54 AM EST Plan of Treatment Health Maintenance Due Date Last Done Comments Annual Gynecologic Pelvic and Breast Exam 1970 TDAP/TD VACCINES (1 - Tdap) 02/17/1988 MAMMOGRAM 2009 COLOGUARD 2014 COLON CANCER SCREENING 5 YEAR SIGMOIDOSCOPY 2014 COLONOSCOPY [address] CANCER SCREENING [address] CT COLONOGRAPHY 2014 FECAL OCCULT BLOOD TEST 2014 FIT Testing (1 year) 2014 ANNUAL PHYSICAL 11/25/2018 HEPATITIS C SCREENING 11/25/2018 Pneumococcal Vaccine 50+ (1 of 1 - PCV) 2019 ZOSTER VACCINE (1 of 2) 2019 COVID-19 Vaccine (1 - ) 07/30/2024 INFLUENZA VACCINE 08/29/2025 Care Teams Business Strategist Relationship Specialty Start Date End Date [place], [place] [address] PCP - General 11/25/18
--- OUTSIDE RECORDS SUMMARY | 2025-07-20 14:12 | XMS_ITS | Clinical Summary ---
Author Organization [facility] Address [address] [place] [address] Care Team Providers Care Daub Color Mixer Name Role Phone Heriberto Bustillos MD Primary Care Provider [phone] Social History Tobacco Use Types Packs/Day Years Used Date Smoking Tobacco: Never Assessed Comments Unknown Sex and Gender Information Value Date Recorded Sex Assigned at Not on file Legal Sex Female 8:02 PM EDT Gender Identity Not on file Sexual Orientation Not on file Plan of Treatment Upcoming Encounters Date Type Department Care Team (Late st Contact Info) Description 08/17/2025 1:30 PM EDT Ovarian Cancer Screening [facility] Gynecology [address] [place] [address] Health Maintenance Due Date Last Done Comments [facility]-Depression Screening 1969 [facility]-HIV Screening 1969 [facility]-Hepatitis C Screening 1969 [facility]-/Child/Adol SDOH Screenings 1969 [facility]- SDOH Screenings 1987 [facility]-Adult SDOH Screenings 1987 [facility]-DTaP,Tdap,and Td Vaccine s (1 - Tdap) 02/17/1988 [facility]-Pap Smear 1990 [facility]-Cervical Cancer Screening 1999 [facility]-HPV/Cotest 1999 CT Colonography 2014 Colonoscopy 2014 FIT-DNA 2014 FIT 2014 FOBT 2014 Sigmoidoscopy 2014 [facility]-Colorectal Cancer Screening 2014 [facility]-Breast Cancer Screening 2019 [facility]-Pneumococcal Vaccine: 50 + Years (1 of 1 - PCV) 2019 [facility]-Zoster Vaccines (1 of 2) 2019 [id number] Vaccine (1 - season) 2024 [facility]-Influenza Vaccine (#1) 2025 [facility]-Hepatitis A Vaccines Aged Out 019, 01/11/2019, 11/07/2018 No longer eligible based on patient's age to complete this topic [facility]-Hepatitis B Vaccines Completed 019, 01/11/2019, 11/07/2018 HPV Vaccines Aged Out No longer eligi ble based on patient's age to complete this topic [facility]-HIB Vaccines Aged Out No longer e ligible based on patient's age to complete this topic [facility]-IPV Vaccines Aged Out No longer e ligible based on patient's age to complete this topic [facility]-Rotavirus Vaccines Aged Out No lo nger eligible based on patient's age to complete this topic Care Teams Daub Color Mixer Relationship Specialty Start Date End Date Heriberto Bustillos MD [address] [place] [address] [place] [address] PCP - General 04/11/21
== END 2025-07-20 23:59 | disposition home or self-care (01) ==
LOC: RAD 14:09
PROVIDERS: PCP Family Medicine; Visit Provider Family Medicine
DX: Z12.39 Encounter for other screening for malignant neoplasm of breast (principal)
CPT/HCPCS: 77063; 77067

== ENCOUNTER 2025-10-11 09:10 | Outpatient (CLI) | payer BC, SELFPAY | END 2025-10-11 23:59 | LOC: LAB.DROPOF 10-15 09:10 | PROVIDERS: PCP Family Medicine; Visit Provider Nurse Practitioner | DX: N39.0 Urinary tract infection, site not specified (principal) | CPT/HCPCS: 87086; 87088; 87186 ==